=== PATIENT | female | born 1985 | race Two or more races ===

== ENCOUNTER 2021-10-22 12:09 | Emergency (ER) | payer SELFPAY ==
[~2021-10-22] VITALS: Ht 167.6 cm; Wt 90.7 kg
[2021-10-22] MEDS ORDERED: cefTRIAXone SOD 1,000 MG VL IM ONE (13:00)
[2021-10-22 13:50] VITALS: BP 127/74
== END 2021-10-22 15:15 | disposition home or self-care (01) ==
LOC: ER 12:09
DX: T23.231A Burn of second degree of multiple right fingers (nail), not including thumb, initial encounter (principal); F17.210 Nicotine dependence, cigarettes, uncomplicated; X10.2XXA Contact with fats and cooking oils, initial encounter; Y93.89 Activity, other specified; Y92.89 Other specified places as the place of occurrence of the external cause; Y99.8 Other external cause status
CPT/HCPCS: 96372; 99283; J0696